=== PATIENT | female | born 1975 | race Caucasian/White ===

== ENCOUNTER 2018-01-06 00:16 | Inpatient (IN) | payer OTHER ==
[2018-01-06] MEDS ORDERED: CEFTRIAXONE 2 GM/50 ML (PMX) 50 ML IVPB (01:30)
[2018-01-06] MEDS: LACTATED RINGER'S 1,000 ML IV ×5 (01:30→18:08)
[2018-01-06 01:45] LABS: ADD MAN DIFF? NO
[2018-01-06 01:48] LABS: WHITE BLOOD COUNT 10.8 10^3/ul (4.8-10.8)
[2018-01-06 01:48] LABS: ABNORMAL IP MESSAGE 1; BASOPHILS % 0.2 % (0.0-2.0); EOSINOPHILS # 0.2 10^3/ul (0.0-0.5); EOSINOPHILS % 1.5 % (0.0-7.0); HEMATOCRIT 38.3 % (37.0-47.0); HEMOGLOBIN 13.1 g/dl (12.0-16.0); IMMATURE GRANS #M 0.03 10^3/ul; IMMATURE GRANS % (M) 0.3 %; LYMPHOCYTES # 2.9 10^3/ul (0.8-2.9); LYMPHOCYTES % 27.2 % (15.0-51.0); MEAN CORPUSCULAR HEMOGLOBIN 30.4 pg (29.0-33.0); MEAN CORPUSCULAR HGB CONC 34.2 g/dl (32.0-37.0); MEAN CORPUSCULAR VOLUME 88.9 fl (82.0-101.0); MEAN PLATELET VOLUME 10.5 fl (7.4-10.4); MONOCYTE # 0.7 10^3/ul (0.3-0.9); MONOCYTES % 6.1 % (0.0-11.0); NEUTROPHILS % 64.7 % (39.0-77.0); PLATELET COUNT 269 10^3/UL (140-415); RED BLOOD COUNT 4.31 10^6/ul (4.20-5.40)
[2018-01-06 02:09] LABS: ALANINE AMINOTRANSFERASE 17 IU/L (13-69); ALBUMIN 3.5 g/dl (3.3-4.9); ALBUMIN/GLOBULIN RATIO 1.25; ALKALINE PHOSPHATASE 81 IU/L (42-121); ANION GAP 9 (8-16); ASPARTATE AMINO TRANSFERASE 16 IU/L (15-46); BILIRUBIN,INDIRECT 0.1 mg/dl (0-1.1); BILIRUBIN,TOTAL 0.1 mg/dl (0.2-1.3); BLOOD UREA NITROGEN 5 mg/dl (7-20); CARBON DIOXIDE 23 mmol/L (21-31); CHLORIDE 109 mmol/L (97-110); CREATININE 0.47 mg/dl (0.44-1.00); GLUCOSE 106 mg/dl (70-220); POTASSIUM 3.5 mmol/L (3.5-5.1); SODIUM 137 mmol/L (135-144); TOTAL PROTEIN 6.3 g/dl (6.1-8.1)
[2018-01-06 02:23] LABS: ADD UMIC YES; UR AMORPHOUS CRYSTAL FEW /HPF (NONE SEEN); UR ASCORBIC ACID NEGATIVE (NEGATIVE); UR BACTERIA MODERATE /HPF (NONE SEEN); UR BILIRUBIN (Dip) NEGATIVE (NEGATIVE); UR BLOOD (Dip) 2+ mg/dL (NEGATIVE); UR CLARITY TURBID (CLEAR); UR COLOR AMBER (YELLOW); UR GLUCOSE (Dip) NEGATIVE (NEGATIVE); UR KETONES (Dip) TRACE mg/dL (NEGATIVE); UR LEUKOCYTE ESTERASE (Dip) 2+ Leu/ul (NEGATIVE); UR MUCUS MODERATE /HPF (NONE SEEN); UR NITRITE (Dip) NEGATIVE (NEGATIVE); UR NONSQUAMOUS EPITHELIAL CELL 2 /HPF (NONE SEEN); UR RBC 45 /HPF (0-5); UR SPECIFIC GRAVITY (Dip) 1.023 (1.003-1.030); UR SQUAMOUS EPITHELIAL CELL MODERATE /HPF (FEW); UR TOTAL PROTEIN (Dip) 1+ mg/dl (NEGATIVE); UR UROBILINOGEN (Dip) 1+ mg/dL (NEGATIVE); UR WBC > 182 /HPF (0-5)
[2018-01-06 02:36] LABS: POSITIVE DIFF @See below
[2018-01-06] MEDS ORDERED: LACTATED RINGER'S 1,000 ML IV (03:00)
[2018-01-06] MEDS: PRENATAL VITAMIN PO (08:52)
[2018-01-06] MEDS: FERROUS SULFATE (EC) 325 MG TAB PO (08:52)
[2018-01-06] MEDS ORDERED: NITROFURANTOIN (SR) 100 MG CAP PO (09:00)
[2018-01-06] MEDS: CLINDAMYCIN 900 MG/D5W (PMX) 50 ML IVPB ×3 (09:17→22:22)
[2018-01-06] MEDS: GENTAMICIN IN NACL, ISO-OSM 50 ML IVPB ×3 (11:50→21:11)
[2018-01-07] MEDS: LACTATED RINGER'S 1,000 ML IV ×3 (02:21→21:18)
[2018-01-07] MEDS: GENTAMICIN IN NACL, ISO-OSM 50 ML IVPB ×3 (05:15→21:19)
[2018-01-07] MEDS: CLINDAMYCIN 900 MG/D5W (PMX) 50 ML IVPB ×3 (06:12→21:55)
[2018-01-07] MEDS: PRENATAL VITAMIN PO (08:57)
[2018-01-07] MEDS: FERROUS SULFATE (EC) 325 MG TAB PO (08:57)
[2018-01-08] MEDS: LACTATED RINGER'S 1,000 ML IV (05:36)
[2018-01-08] MEDS: GENTAMICIN IN NACL, ISO-OSM 50 ML IVPB (05:36)
[2018-01-08] MEDS: CLINDAMYCIN 900 MG/D5W (PMX) 50 ML IVPB (06:43)
[2018-01-08] MEDS: FERROUS SULFATE (EC) 325 MG TAB PO (10:58)
[2018-01-08] MEDS: PRENATAL VITAMIN PO (10:58)
== END 2018-01-08 12:45 | disposition home or self-care (01) | DRG 781 ==
LOC: OBT 00:16 → L-D 00:17 → OBT 04:12 → L-D 04:14 → PP1 10:18
DX: O23.03 Infections of kidney in pregnancy, third trimester (principal); O09.523 Supervision of elderly multigravida, third trimester; Z3A.30 30 weeks gestation of pregnancy
CPT/HCPCS: 36415; 76815; 76817; 80053; 81001; 85025; 87086; 96360; 96361

== ENCOUNTER 2018-02-26 09:06 | Inpatient (IN) | payer OTHER ==
[2018-02-26] MEDS: LACTATED RINGER'S 1,000 ML IV* ×2 (09:28→12:17)
[2018-02-26] MEDS ORDERED: OXYTOCIN 30 UNITS/LR 500 ML IV ×4 (09:30→12:30)
[2018-02-26] MEDS ORDERED: METHYLERGONOVINE 0.2 MG INJ IM ×3 (09:30→12:30)
[2018-02-26] MEDS ORDERED: BUTORPHANOL 2 MG INJ IV (09:30)
[2018-02-26] MEDS ORDERED: CARBOPROST 250 MCG INJ IM ×3 (09:30→12:30)
[2018-02-26] MEDS ORDERED: LIDOCAINE 1% (MPF) 30 ML INJ INJ (09:30)
[2018-02-26] MEDS ORDERED: MISOPROSTOL 200 MCG TAB PR ×3 (09:30→12:30)
[2018-02-26] MEDS ORDERED: BETAMET NA PHOS/AC(6 MG/ML) 5ML INJ IM (09:30)
[2018-02-26] MEDS ORDERED: BUTORPHANOL 1 MG INJ IV (09:30)
[2018-02-26] MEDS: BETAMET NA PHOS/AC(6 MG/ML) 5ML INJ IM (09:31)
[2018-02-26 09:44] LABS: ADD MAN DIFF? NO
[2018-02-26 09:48] LABS: BASOPHILS % 0.2 % (0.0-2.0); EOSINOPHILS # 0.1 10^3/ul (0.0-0.5); EOSINOPHILS % 0.8 % (0.0-7.0); HEMOGLOBIN 14.9 g/dl (12.0-16.0); LYMPHOCYTES # 3.5 10^3/ul (0.8-2.9); LYMPHOCYTES % 26.3 % (15.0-51.0); MEAN CORPUSCULAR HEMOGLOBIN 32.4 pg (29.0-33.0); MEAN CORPUSCULAR HGB CONC 34.7 g/dl (32.0-37.0); MEAN CORPUSCULAR VOLUME 93.5 fl (82.0-101.0); MEAN PLATELET VOLUME 11.6 fl (7.4-10.4); MONOCYTES % 7.6 % (0.0-11.0); NEUTROPHIL # 8.5 10^3/ul (1.6-7.5); NEUTROPHILS % 64.7 % (39.0-77.0); PLATELET COUNT 246 10^3/UL (140-415); RED CELL DISTRIBUTION WIDTH 15.8 % (11.5-14.5)
[2018-02-26 09:48] LABS: WHITE BLOOD COUNT 13.1 10^3/ul (4.8-10.8)
[2018-02-26] MEDS ORDERED: GENTAMICIN 80 MG/NS (PMX) 50 ML IVPB (10:00)
[2018-02-26] MEDS ORDERED: CLINDAMYCIN 900 MG/D5W (PMX) 50 ML IVPB ×2 (10:00→18:00)
[2018-02-26 10:06] LABS: GLUCOSE 91 mg/dl (70-220)
[2018-02-26 10:07] LABS: INR 0.88; PT RATIO 0.9
[2018-02-26] MEDS: CITRIC ACID/NA CITRATE 30 ML CUP PO (10:18)
[2018-02-26] MEDS: ONDANSETRON 4 MG INJ IV (10:19)
[2018-02-26] MEDS ORDERED: FENTAnyl 50 MCG/ML VIAL (10:48)
[2018-02-26] MEDS ORDERED: METOCLOPRAMIDE 10 MG INJ (10:48)
[2018-02-26] MEDS ORDERED: morphine SULFATE/PF (10 MG/10 ML) INJ (10:48)
[2018-02-26] MEDS ORDERED: PHENYLephrine (100 MCG/ML) 5ML SYG (10:48)
[2018-02-26] MEDS ORDERED: OXYTOCIN 10 UNIT INJ (10:48)
[2018-02-26] MEDS ORDERED: BUPIVACAINE 0.75%/DEXT (SPINAL) 2 ML INJ (10:49)
[2018-02-26 11:30] LABS: HEPATITIS B SURFACE ANTIGEN NEGATIVE (NEGATIVE)
[2018-02-26] MEDS ORDERED: OXYCODONE/ACETAMINOPHEN (5/325) TAB PO ×2 (12:30)
[2018-02-26] MEDS ORDERED: NALOXONE (0.4 MG/ML) INJ IV (12:30)
[2018-02-26] MEDS ORDERED: DIPHENHYDRAMINE 50 MG INJ IV ×2 (12:30)
[2018-02-26] MEDS ORDERED: IPRATROPIUM (NEB) 0.5 MG/2.5 ML AMP HHN (12:30)
[2018-02-26] MEDS ORDERED: morphine 2 MG INJ IV ×2 (12:30)
[2018-02-26] MEDS ORDERED: FENTAnyl 50 MCG/ML VIAL IV ×3 (12:30)
[2018-02-26] MEDS ORDERED: TRIMETHOBENZAMIDE 100 MG/ML VIAL IM ×2 (12:30)
[2018-02-26] MEDS ORDERED: EPHEDrine SULFATE 50 MG/5 ML SYG IV (12:30)
[2018-02-26] MEDS ORDERED: NALBUPHINE HCL (10 MG/1 ML) INJ IV (12:30)
[2018-02-26] MEDS ORDERED: LABETALOL HCL 20MG INJ IV (12:30)
[2018-02-26] MEDS ORDERED: hydrALAzine 20 MG INJ IV (12:30)
[2018-02-26] MEDS ORDERED: MEPERIDINE 25 MG INJ IV (12:30)
[2018-02-26] MEDS ORDERED: ALBUTEROL 0.083% (NEB) 2.5 MG/3 ML AMP HHN (12:30)
[2018-02-26] MEDS ORDERED: HYDROmorphONE 1 MG/5 ML IV SYRINGE IV ×3 (12:30)
[2018-02-26] MEDS ORDERED: ONDANSETRON 4 MG INJ IV ×2 (12:30)
[2018-02-26] MEDS: ACCU-CHEK XX ×2 (13:30→20:15)
[2018-02-26] MEDS: OXYTOCIN 30 UNITS/LR 500 ML IV (16:00)
[2018-02-26 16:46] LABS: RAPID PLASMA REAGIN NONREACTIVE (NR)
[2018-02-26] MEDS: SENNA/DOCUSATE NA (8.6MG/50MG) TAB PO (20:13)
[2018-02-26] MEDS: NITROFURANTOIN (SR) 100 MG CAP PO (20:13)
[2018-02-26] MEDS: KETOROLAC 30 MG INJ IV (20:41)
[2018-02-26] MEDS: CLINDAMYCIN 900 MG/D5W (PMX) 50 ML IVPB (22:23)
[2018-02-27] MEDS: LACTATED RINGER'S 1,000 ML IV* (00:19)
[2018-02-27] MEDS ORDERED: LACTATED RINGER'S 1,000 ML IV (00:30)
[2018-02-27] MEDS: CLINDAMYCIN 900 MG/D5W (PMX) 50 ML IVPB ×2 (05:38→14:53)
[2018-02-27] MEDS: KETOROLAC 30 MG INJ IV (05:49)
[2018-02-27 08:31] LABS: ADD MAN DIFF? NO
[2018-02-27 08:35] LABS: BASOPHILS % 0.2 % (0.0-2.0); EOSINOPHILS % 0.2 % (0.0-7.0); HEMATOCRIT 34.4 % (37.0-47.0); HEMOGLOBIN 11.9 g/dl (12.0-16.0); LYMPHOCYTES # 3.4 10^3/ul (0.8-2.9); LYMPHOCYTES % 28.5 % (15.0-51.0); MEAN CORPUSCULAR HEMOGLOBIN 32.9 pg (29.0-33.0); MEAN CORPUSCULAR HGB CONC 34.6 g/dl (32.0-37.0); MEAN PLATELET VOLUME 12.2 fl (7.4-10.4); MONOCYTE # 1.2 10^3/ul (0.3-0.9); MONOCYTES % 9.9 % (0.0-11.0); NEUTROPHIL # 7.2 10^3/ul (1.6-7.5); NEUTROPHILS % 60.9 % (39.0-77.0); PLATELET COUNT 234 10^3/UL (140-415); RED BLOOD COUNT 3.62 10^6/ul (4.20-5.40); RED CELL DISTRIBUTION WIDTH 15.9 % (11.5-14.5)
[2018-02-27 08:35] LABS: WHITE BLOOD COUNT 11.8 10^3/ul (4.8-10.8)
[2018-02-27] MEDS: ACCU-CHEK XX ×4 (09:00→23:35)
[2018-02-27] MEDS: NITROFURANTOIN (SR) 100 MG CAP PO (09:04)
[2018-02-27] MEDS: SENNA/DOCUSATE NA (8.6MG/50MG) TAB PO ×2 (09:04→22:06)
[2018-02-27] MEDS ORDERED: OXYCODONE/ACETAMINOPHEN (5/325) TAB PO ×2 (10:44)
[2018-02-27] MEDS: IBUPROFEN 600 MG TAB PO ×3 (12:22→23:32)
[2018-02-27] MEDS: MEPERIDINE 50 MG INJ IV (16:16)
[2018-02-27] MEDS: TRIMETHOPRIM/SULFAMETHOX (DS) TAB PO (22:06)
[2018-02-27] MEDS: MEPERIDINE 50 MG INJ IM (22:07)
[2018-02-28] MEDS: IBUPROFEN 600 MG TAB PO ×2 (05:19→12:15)
[2018-02-28 08:10] LABS: BLOOD UREA NITROGEN 11 mg/dl (7-20)
[2018-02-28 08:10] LABS: CREATININE 0.62 mg/dl (0.44-1.00)
[2018-02-28] MEDS: TRIMETHOPRIM/SULFAMETHOX (DS) TAB PO ×2 (08:36→21:41)
[2018-02-28] MEDS: SENNA/DOCUSATE NA (8.6MG/50MG) TAB PO ×2 (08:36→21:41)
[2018-02-28] MEDS: MEPERIDINE 50 MG INJ IM (08:52)
[2018-02-28] MEDS: ACCU-CHEK XX ×4 (10:05→20:05)
[2018-02-28] MEDS ORDERED: IBUPROFEN 800 MG TAB GTB (17:00)
[2018-02-28] MEDS: ACETAMINOPHEN 325 MG TAB PO ×3 (17:53→22:14)
[2018-02-28] MEDS: IBUPROFEN 800 MG TAB PO (21:42)
[2018-03-01 03:30] LABS: AADO2 Arterial 589.2 mmHg (7.0-24.0); Allen Test ACCEPTAB; Arterial Base Excess -5.2 mmol/L (-3.0-3); Arterial Blood Gas Oxygen Sat 96.6 mmHG (95.0-98.0); Arterial COHb 0 % (0.0-3.0); Arterial Fraction of Oxyhgb 96.2 % (93.0-99.0); Arterial HCO3 18.4 mmol/L (22.0-26.0); Arterial MetHb 0.4 % (0.0-1.5); Arterial pCO2 31.3 mmhg (35-45); MODE MASK - NRB; Site Right Radial
[2018-03-01 03:33] LABS: ADD MAN DIFF? NO
[2018-03-01 03:57] LABS: BASOPHILS % 0.3 % (0.0-2.0); EOSINOPHILS # 0.3 10^3/ul (0.0-0.5); EOSINOPHILS % 2.6 % (0.0-7.0); HEMOGLOBIN 14.6 g/dl (12.0-16.0); LYMPHOCYTES # 4.1 10^3/ul (0.8-2.9); LYMPHOCYTES % 35.8 % (15.0-51.0); MEAN CORPUSCULAR HEMOGLOBIN 33.1 pg (29.0-33.0); MEAN CORPUSCULAR HGB CONC 34.8 g/dl (32.0-37.0); MEAN CORPUSCULAR VOLUME 95.2 fl (82.0-101.0); MEAN PLATELET VOLUME 11.5 fl (7.4-10.4); MONOCYTE # 0.8 10^3/ul (0.3-0.9); MONOCYTES % 7.3 % (0.0-11.0); NEUTROPHIL # 6.1 10^3/ul (1.6-7.5); NEUTROPHILS % 53.6 % (39.0-77.0); PLATELET COUNT 264 10^3/UL (140-415); RED BLOOD COUNT 4.41 10^6/ul (4.20-5.40); RED CELL DISTRIBUTION WIDTH 15.6 % (11.5-14.5)
[2018-03-01 03:57] LABS: WHITE BLOOD COUNT 11.3 10^3/ul (4.8-10.8)
[2018-03-01] MEDS: IOHEXOL 300MG/ML 150 ML BTL (03:57)
[2018-03-01] MEDS: SOD CHLORIDE 0.9% 100 ML (03:57)
[2018-03-01 04:02] LABS: ALANINE AMINOTRANSFERASE 23 IU/L (13-69); ALBUMIN/GLOBULIN RATIO 1.03; ALKALINE PHOSPHATASE 133 IU/L (42-121); ANION GAP 13 (8-16); ASPARTATE AMINO TRANSFERASE 25 IU/L (15-46); BILIRUBIN,INDIRECT 0.1 mg/dl (0-1.1); BILIRUBIN,TOTAL 0.1 mg/dl (0.2-1.3); BLOOD UREA NITROGEN 9 mg/dl (7-20); CALCIUM 8.9 mg/dl (8.4-10.2); CARBON DIOXIDE 19 mmol/L (21-31); CHLORIDE 111 mmol/L (97-110); CREATININE 0.57 mg/dl (0.44-1.00); GLUCOSE 84 mg/dl (70-220); POTASSIUM 4.4 mmol/L (3.5-5.1); SODIUM 139 mmol/L (135-144); TOTAL PROTEIN 5.9 g/dl (6.1-8.1)
[2018-03-01 04:07] LABS: LACTIC ACID 4.4 mmol/L (0.5-2.0)
[2018-03-01 04:18] LABS: TROPONIN-I < 0.012 ng/ml (0.000-0.120)
[2018-03-01] MEDS: ENOXAPARIN 80 MG/0.8 ML SYG SC ×3 (04:56→21:23)
[2018-03-01] MEDS: ACCU-CHEK XX ×4 (05:30→19:55)
[2018-03-01] MEDS: SOD CHLORIDE 0.9% 250 ML IV (05:30)
[2018-03-01] MEDS: IBUPROFEN 800 MG TAB PO ×2 (06:11→13:12)
[2018-03-01 08:23] LABS: LACTIC ACID 1.3 mmol/L (0.5-2.0)
[2018-03-01] MEDS: INFLUENZA VIRUS VACCINE 0.5 ML (DISPENSING) IM* (08:23)
[2018-03-01 08:31] LABS: ADD UMIC YES; UR ASCORBIC ACID NEGATIVE (NEGATIVE); UR BILIRUBIN (Dip) NEGATIVE (NEGATIVE); UR BLOOD (Dip) 3+ mg/dL (NEGATIVE); UR CLARITY CLEAR (CLEAR); UR COLOR YELLOW (YELLOW); UR GLUCOSE (Dip) NEGATIVE (NEGATIVE); UR KETONES (Dip) NEGATIVE (NEGATIVE); UR LEUKOCYTE ESTERASE (Dip) TRACE Leu/ul (NEGATIVE); UR NITRITE (Dip) NEGATIVE (NEGATIVE); UR RBC 84 /HPF (0-5); UR SPECIFIC GRAVITY (Dip) 1.054 (1.003-1.030); UR SQUAMOUS EPITHELIAL CELL FEW /HPF (FEW); UR TOTAL PROTEIN (Dip) NEGATIVE (NEGATIVE); UR UROBILINOGEN (Dip) 1+ mg/dL (NEGATIVE); UR WBC 12 /HPF (0-5)
[2018-03-01] MEDS: NITROFURANTOIN (SR) 100 MG CAP PO ×2 (08:31→21:21)
[2018-03-01] MEDS: SENNA/DOCUSATE NA (8.6MG/50MG) TAB PO ×2 (08:31→21:21)
[2018-03-01] MEDS: TRIMETHOPRIM/SULFAMETHOX (DS) TAB PO (08:31)
[2018-03-01] MEDS: ENOXAPARIN 40 MG/0.4 ML SYG SC (09:58)
[2018-03-01 14:39] LABS: LACTIC ACID 1.3 mmol/L (0.5-2.0)
[2018-03-01] MEDS: WARFARIN 5 MG TAB PO (18:02)
[2018-03-01 20:47] LABS: LACTIC ACID 1.4 mmol/L (0.5-2.0)
[2018-03-02] MEDS: ACETAMINOPHEN 325 MG TAB PO ×4 (00:05→15:56)
[2018-03-02] MEDS: ACCU-CHEK XX ×3 (05:52→15:40)
[2018-03-02 06:13] LABS: ADD MAN DIFF? NO
[2018-03-02 06:22] LABS: BASOPHILS % 0.3 % (0.0-2.0); EOSINOPHILS # 0.4 10^3/ul (0.0-0.5); EOSINOPHILS % 4.6 % (0.0-7.0); HEMOGLOBIN 13.3 g/dl (12.0-16.0); LYMPHOCYTES # 2.8 10^3/ul (0.8-2.9); LYMPHOCYTES % 35.3 % (15.0-51.0); MEAN CORPUSCULAR HEMOGLOBIN 32.8 pg (29.0-33.0); MEAN CORPUSCULAR HGB CONC 34.1 g/dl (32.0-37.0); MEAN CORPUSCULAR VOLUME 96.1 fl (82.0-101.0); MEAN PLATELET VOLUME 11.4 fl (7.4-10.4); MONOCYTE # 0.7 10^3/ul (0.3-0.9); MONOCYTES % 8.6 % (0.0-11.0); NEUTROPHILS % 50.8 % (39.0-77.0); PLATELET COUNT 285 10^3/UL (140-415); RED BLOOD COUNT 4.06 10^6/ul (4.20-5.40); RED CELL DISTRIBUTION WIDTH 15.3 % (11.5-14.5)
[2018-03-02 06:22] LABS: WHITE BLOOD COUNT 7.8 10^3/ul (4.8-10.8)
[2018-03-02 06:34] LABS: ANION GAP 10 (8-16); BLOOD UREA NITROGEN 10 mg/dl (7-20); CARBON DIOXIDE 24 mmol/L (21-31); CHLORIDE 110 mmol/L (97-110); CREATININE 0.66 mg/dl (0.44-1.00); GLUCOSE 107 mg/dl (70-220); POTASSIUM 3.8 mmol/L (3.5-5.1); SODIUM 140 mmol/L (135-144)
[2018-03-02 06:38] LABS: INR 0.86; PROTIME 11.8 Sec (11.9-14.9); PT RATIO 0.9
[2018-03-02] MEDS: NITROFURANTOIN (SR) 100 MG CAP PO ×2 (09:51→20:19)
[2018-03-02] MEDS: SENNA/DOCUSATE NA (8.6MG/50MG) TAB PO (09:51)
[2018-03-02] MEDS: ENOXAPARIN 80 MG/0.8 ML SYG SC ×2 (09:55→20:28)
[2018-03-02] MEDS: MAGNESIUM HYDROXIDE 30ML CUP PO (10:05)
[2018-03-02] MEDS: WARFARIN 5 MG TAB PO (17:01)
== END 2018-03-02 20:31 | disposition home or self-care (01) | DRG 786 ==
LOC: OBT 09:06 → TEL 03-01 04:27 → L-D 09:06 → OBT 09:07 → L-D 09:07 → PP1 14:50
PROVIDERS: Obstetrics & Gynecology
PROC: 10D00Z1 Extraction of Products of Conception, Low, Open Approach (ICD-10-PCS; principal; 2018-02-27)
DX: O60.14X0 Preterm labor third trimester with preterm delivery third trimester, not applicable or unspecified (principal); O88.83 Other embolism in the puerperium; I26.99 Other pulmonary embolism without acute cor pulmonale; O24.420 Gestational diabetes mellitus in childbirth, diet controlled; O34.211 Maternal care for low transverse scar from previous cesarean delivery; O99.89 Other specified diseases and conditions complicating pregnancy, childbirth and the puerperium; R00.1 Bradycardia, unspecified; E87.2 Acidosis; Z37.0 Single live birth; Z3A.35 35 weeks gestation of pregnancy
CPT/HCPCS: 36600; 71275; 80048; 80053; 81001; 82565; 82803; 82947; 82962; 83605; 84484; 84520; 85025; 85610; 85730; 86592; 86850; 86900; 86901; 87040; 87086; 87340; 90686; 93306; 93970; 99464